=== PATIENT | male | born 1990 ===

== ENCOUNTER 2017-11-06 16:51 | Emergency (ER) | payer MEDICAID, OTHER ==
[2017-11-06 17:06] VITALS: BP 117/68; PULSE 88; RESP 18; TEMP 99.2; O2SAT 98
--- NOTE | 2017-11-06 17:39 | RAD ---
Date of service: 11/06/2017 PROCEDURE: Right Ankle Radiographs. HISTORY: pain s.p twisting injury on steps 5 days ago COMPARISON: None FINDINGS: BONES: No acute fracture. JOINTS: Ankle mortise maintained. Talar dome intact SOFT TISSUES: Lateral malleolar soft tissue swelling. OTHER FINDINGS: None. IMPRESSION: Malleolar soft tissue swelling without demonstrated fracture or dislocation.
--- NOTE | 2017-11-06 18:34 | C.PDOC ---
History Of Present Illness 27 year old male presents to the ER with a complaint of right ankle pain and swelling for the past 5 days after he twisted it. Patient reports he is painful to ambulate. Denies weakness or numbness. Time Seen by Provider: 11/06/17 17:13 Chief Complaint (Nursing): Lower Extremity Problem/Injury History Per: Patient History/Exam Limitations: no limitations Onset/Duration Of Symptoms: Days Current Symptoms Are (Timing): Still Present Recent travel outside of the [place]: No - Ankle/Foot Description Of Injury: Twisted Past Medical History Reviewed: Historical Data, Nursing Documentation, Vital Signs Vital Signs: Last Vital Signs Temp 99.2 F 11/06/17 17:04 Pulse 88 11/06/17 17:04 Resp 18 11/06/17 18:04 BP 117/68 11/06/17 17:04 Pulse Ox 98 11/06/17 18:38 - Medical History PMH: Anxiety Surgical History: Appendectomy Family History: States: Unknown Family Hx - Social History Hx Alcohol Use: Yes Hx Substance Use: Yes - Immunization History Hx Tetanus Toxoid Vaccination: No Hx Influenza Vaccination: No Hx Pneumococcal Vaccination: No Review Of Systems Musculoskeletal: Positive for: Foot Pain Neurological: Negative for: Weakness, Numbness Physical Exam - Physical Exam Appears: Non-toxic Skin: Normal Color, Warm, Dry Head: Atraumatic, Normacephalic Eye(s): bilateral: Normal Inspection Oral Mucosa: Moist Extremity: Normal ROM (x4), Capillary Refill (<2 seconds), Other (Right lateral ankle swelling and tenderness) Pulses: Left Dorsalis Pedis: Normal, Right Dorsalis Pedis: Normal Neurological/Psych: Oriented x3, Normal Speech, Normal Motor, Normal Sensation Gait: Steady ED Course And Treatment O2 Sat by Pulse Oximetry: 98 - Other Rad Right ankle x-ray X-Ray: Interpreted by Me, Viewed By Me Interpretation: PROCEDURE: Right Ankle Radiographs. HISTORY: pain s.p twisting injury on steps 5 days ago. COMPARISON: None. FINDINGS: BONES: No acute fracture. JOINTS: Ankle mortise maintained. Talar dome intact. SOFT TISSUES: Lateral malleolar soft tissue swelling. OTHER FINDINGS: None. IMPRESSION: Malleolar soft tissue swelling without demonstrated fracture or dislocation. Medical Decision Making Medical Decision Making: Right ankle x-ray ordered, results show no acute fracture and soft tissue swelling. Buddy bandage and aircast splint applied by CP. Patient to be discharged home with Rx and instructions to rest ice and elevate the extremity. Patient can follow up with podiatry or ortho if symptoms persist Disposition Counseled Patient/Family Regarding: Diagnosis, Need For Followup, Rx Given - Disposition Referrals: Cristi Blackburn III, MD [Staff Provider] - Disposition: HOME/ ROUTINE Disposition Time: 18:00 Condition: GOOD Additional Instructions: Your xray was normal, no fracture. Please apply ice to area 15 minutes three times a day. Take Motrin as needed for pain every 6 hours, with food to not upset stomach. Follow up with orthopedic if pain persists over one week. Prescriptions: Ibuprofen [Motrin] 600 mg PO Q8 #30 tab Instructions: Ankle Sprain Forms: [employer] ([place]) - POA Present On Arrival: None - Clinical Impression Clinical Impression: Ankle sprain - PA / SALESPERSON JEWELRY / Resident Statement MD/DO has reviewed & agrees with the documentation as recorded. - Scribe Statement The provider has reviewed the documentation as recorded by the Scribe Rafi Herrera All medical record entries made by the Noriibmary were at my direction and personally dictated by me. I have reviewed the chart and agree that the record accurately reflects my personal performance of the history, physical exam, medical decision making, and the department course for this patient. I have also personally directed, reviewed, and agree with the discharge instructions and disposition.
== END 2017-11-06 18:05 | disposition home or self-care (01) ==
LOC: C.ER 16:51
DX: S93.401A Sprain of unspecified ligament of right ankle, initial encounter (principal); X50.1XXA Overexertion from prolonged static or awkward postures, initial encounter